=== PATIENT | female | born 1975 | race Caucasian/White ===

== ENCOUNTER → 2022-08-02 13:53 | Outpatient (BNVA) | payer OTHER, SELFPAY | PROVIDERS: Visit Provider Nurse Practitioner Family | DX: R35.0 Frequency of micturition (principal) | CPT/HCPCS: 81000 ==

== ENCOUNTER → 2024-05-16 12:55 | Outpatient (BNVA) | payer OTHER, SELFPAY | PROVIDERS: Visit Provider Orthopaedic Surgery | DX: Z01.818 Encounter for other preprocedural examination (principal); S62.102A Fracture of unspecified carpal bone, left wrist, initial encounter for closed fracture; W18.30XA Fall on same level, unspecified, initial encounter | CPT/HCPCS: 36415; 73110; 80053; 81001; 85025 ==

== ENCOUNTER 2024-05-16 13:54 | Outpatient (CLI) | payer OTHER, SELFPAY | END 2024-05-16 13:55 | disposition home or self-care (01) | LOC: SPT 13:54 | PROVIDERS: Visit Provider Orthopaedic Surgery | DX: Z46.89 Encounter for fitting and adjustment of other specified devices (principal); S52.592D Other fractures of lower end of left radius, subsequent encounter for closed fracture with routine healing; X58.XXXD Exposure to other specified factors, subsequent encounter | CPT/HCPCS: 97760; L3908 ==